=== PATIENT | female | born 1970 ===

== ENCOUNTER → 2018-09-30 20:06 | Outpatient (REF) | payer OTHER, SELFPAY ==
[2018-09-30 20:24] LABS: HEMOLYSIS 25 (0-50); Iron 87 ug/dL (37-170)
[2018-09-30 20:26] LABS: Alanine Aminotransferase 33 IU/L (9-52); Albumin 4.6 g/dL (3.5-5.0); Albumin Globulin Ratio 1.4 (1.0-2.8); Alkaline Phosphatase 114 U/L (38-126); Aspartate Aminotransferase 33 IU/L (14-36); BUN Creatinine Ratio 32.9 (6-22); Bilirubin Total 0.4 mg/dL (0.2-1.3); Blood Urea Nitrogen 23 mg/dL (7-17); Calcium 9.6 mg/dL (8.4-10.2); Carbon Dioxide 27 mmol/L (22-32); Chloride 106 mmol/L (98-107); Cholesterol 183 mg/dL (140-199); Estimated Glomerular Filt Rate > 60.0 mL/min (>60); Globulin 3.3 g/dL (1.7-4.1); Glucose 114 mg/dL (70-100); HDL Cholesterol 68 mg/dL (40-60); HEMOLYSIS 40 (0-50); LDL Cholesterol Calculated 87 mg/dL (<100); Sodium 145 mmol/L (137-145); Total Protein 7.9 g/dL (6.3-8.2); Triglycerides 140 mg/dL (35-150); Uric Acid 6.1 mg/dL (2.5-6.2)
[2018-09-30 20:35] LABS: Percent Iron Saturation 27 % (15-50); Total Iron Binding Capacity 324 ug/dL (265-497); Transferrin 269 mg/dL (206-381)
[2018-09-30 20:42] LABS: Vitamin D 25 Hydroxy (D3) 22.5 ng/mL (30.0-100.0)
[2018-09-30 21:01] LABS: Ferritin 53.7 ng/mL (6.27-137)
[2018-09-30 21:31] LABS: Vitamin B12 271 pg/mL (239-931)
== END ==
LOC: LAB 20:06
PROVIDERS: Visit Provider Family Medicine
DX: Z13.6 Encounter for screening for cardiovascular disorders (principal); Z13.1 Encounter for screening for diabetes mellitus; Z13.228 Encounter for screening for other metabolic disorders; M10.9 Gout, unspecified; E55.9 Vitamin D deficiency, unspecified; R79.9 Abnormal finding of blood chemistry, unspecified; D64.9 Anemia, unspecified
CPT/HCPCS: 36415; 80053; 80061; 82306; 82607; 82728; 82746; 83540; 83550; 84550